=== PATIENT | female | born 1975 | race Caucasian/White ===

== ENCOUNTER 2020-08-17 11:28 | Emergency (ER) | payer OTHER, SELFPAY ==
[2020-08-17] VITALS (9 sets, daily range): BP systolic 95–114; BP diastolic 59–70; PULSE 61–76; RESP 15–25; TEMP 36.7; O2SAT 97–100
--- NOTE | ~2020-08-17 | XR_ITS ---
EXAMINATION: XR chest 1V portable DATE: 08/17/2020 13:06 INDICATION: Shortness of breath. TECHNIQUE: A single frontal view of the chest was obtained. COMPARISON: None. FINDINGS: The chest demonstrates clear lungs without pneumonia, pleural effusion, or pneumothorax. Th e heart size is normal. IMPRESSION: 1. No acute cardiopulmonary disease. Reviewed, dictated and finalized at location B.
--- NOTE | 2020-08-17 12:20 | ECG_ITS ---
Measurements Intervals [place] Rate: 50 P: 61 [place]: 146 QRS: 159 QRSD: 85 T: 15 QT: 375 QTc: 342 Interpretive Statements SINUS BRADYCARDIA POSSIBLE LEFT ATRIAL ENLARGEMENT INCOMPLETE RIGHT BUNDLE BRANCH BLOCK BORDERLINE R WAVE PROGRESSION, ANTERIOR LEADS BORDERLINE T WAVE ABNORMALITY- ANTERIOR LEADS BASELINE ARTIFACT- II, III, AVR, AVF, V2-V6 BORDERLINE ECG Electronically Signed On 08-17-2020 12:59:50 CDT by Angel Luis Cm D.O.
[2020-08-17 12:29] LABS: Basophils Percent Auto 0.8 % (0.2-1.2); Eosinophils Absolute Auto 0.1 K/mm3 (0-0.3); Eosinophils Percent Auto 1.5 % (0-4.4); Hematocrit 43.2 % (37.0-47.0); Hemoglobin 14.2 g/dL (12.0-15.0); Immature Granulocyte Absolute 0.02 K/mm3 (0.00-0.031); Immature Granulocyte Percent A 0.5 % (0-0.5); Lymphocytes Absolute Auto 1.19 K/mm3 (0.9-3.2); Lymphocytes Percent Auto 29.8 % (18.3-44.2); Mean Corpuscular HGB Conc 32.9 g/dl (32-36); Mean Corpuscular Hemoglobin 30.5 pg (26-34); Mean Corpuscular Volume 92.7 fl (80-100); Mean Platelet Volume 10.3 fl (7.4-10.4); Monocytes Absolute Auto 0.3 K/mm3 (0.1-0.6); Neutrophils Absolute Auto 2.4 K/mm3 (1.3-6.7); Neutrophils Percent Auto 60.4 % (45.5-73.1); Platelet Count Result 211 k/mm3 (150-375); Red Blood Count 4.66 M/mm3 (4.2-5.4); Red Cell Distribution Width 12.6 % (11.5-14.5)
[2020-08-17 12:40] LABS: Anion Gap 4 mmol/L (8-16); Blood Urea Nitrogen 10 mg/dL (7-17); Calcium 8.6 mg/dL (8.4-10.2); Carbon Dioxide 24 mmol/L (22-30); Chloride 108 mmol/L (98-107); Estimated CRCL calculation 89 ml/min; Estimated Glomerular Filt Rate > 60; Glucose 91 mg/dL (65-105); Potassium 4.2 mmol/L (3.4-5.0); Sodium 136 mmol/L (137-145)
--- NOTE | 2020-08-17 12:45 | ED.URI ---
HPI - URI/Sore Throat General Chief Complaint: Shortness of Breath/Dyspnea Stated Complaint: sob Time Seen by Provider: 08/17/20 12:20 Source: patient Mode of arrival: ambulatory Limitations: no limitations History of Present Illness HPI Narrative: This is a 44 year old female that presents to the ER for cold symptoms x 1 week. Reports cough, congestion. Also reports chest pressure that has been constant over the last week. Worse when she wakes up in the morning. Reports she had a negative covid swab 5 days ago. Denies fever, shortness of breath, or lower extremity edema. Related Data Allergies Allergy/AdvReac Type Severity Reaction Status Date / Time No Known Allergies Allergy Verified 08/17/20 12:21 Review of Systems Review of Systems: Narrative: CONSTITUTIONAL: Denies fever ENT: Reports congestion CARDIOVASCULAR: Reports chest pain. Denies edema. RESPIRATORY: Reports cough. Denies dyspnea. GASTROINTESTINAL: Reports abdominal pain, nausea, vomiting GENITOURINARY: Denies dysuria All systems reviewed & are unremarkable except as noted in HPI and below PMFSH Social History Social History (Updated 08/17/20 @ 12:47 by Silvia Tamayo PA-C) Smoking status: Current every day smoker Alcohol intake: current Exam Narrative: Exam Narrative: GENERAL: Well-appearing, well-nourished, and in no acute distress. HEAD: Normocephalic, atraumatic. EYES: EOMI. ENT: Nares clear, no rhinorrhea or epistaxis. Mucous membranes moist. Oropharynx without tonsillar hypertrophy exudate or other lesions. Bilateral TMs pearly melvin non-bulging NECK: Supple. No adenopathy or masses. No carotid bruits or JVD CHEST: Clear to auscultation. No respiratory distress. No wheezes rales or rhonchi HEART: Regular rate and rhythm. No murmur heard. Normal peripheral pulses. EXTREMITIES: Normal range of motion. No edema. SKIN: Warm, dry, no rash. NEURO: No focal deficits. Alert and oriented x3. PSYCH: Normal mood and affect Course Vital Signs Vital signs: Vital Signs Temperature 98.0 F 08/17/20 12:16 Pulse Rate 74 08/17/20 12:16 Respiratory Rate 18 08/17/20 12:16 Blood Pressure 114/70 08/17/20 12:16 Pulse Oximetry 100 08/17/20 12:16 Temperature 98.0 F 08/17/20 12:16 Pulse Rate 61 08/17/20 14:50 Respiratory Rate 18 08/17/20 14:50 Blood Pressure 101/59 L 08/17/20 14:50 Pulse Oximetry 97 08/17/20 14:50 MDM - URI/Sore Throat MDM Narrative Medical decision making narrative: Patient presents to the emergency department for cold symptoms over the last week. Reporting cough, congestion, and vomiting. She is afebrile and nontoxic-appearing. Oxygen saturation is normal on room air. She did have a negative Covid swab recently. CBC and metabolic panel without concerning findings. EKG without concerning changes and baseline troponin is negative. PERC criteria negative. Chest x-ray is without acute cardiopulmonary disease. UA without evidence of infection. Influenza screen is negative. Patient updated on case findings. Instructed on care of viral infection. She is to follow-up with her primary care doctor. She was given warnings to return to the ER Lab Data Attestation: I reviewed the patient's lab results. Result diagrams: 08/17/20 12:22 08/17/20 12:22 Labs: Lab Results 08/17/20 08/17/20 08/17/20 Range/Units 12:22 12:22 12:22 WBC 4.0 L (4.5-10.0) K/mm3 RBC 4.66 (4.2-5.4) M/mm3 Hgb 14.2 (12.0-15.0) g/dL Hct 43.2 (37.0-47.0) % MCV 92.7 (80-100) fl MCH 30.5 (26-34) pg MCHC 32.9 (32-36) g/dl RDW 12.6 (11.5-14.5) % Plt Count 211 (150-375) k/mm3 MPV 10.3 (7.4-10.4) fl Immature Gran % (Auto) 0.5 (0-0.5) % Neut % (Auto) 60.4 (45.5-73.1) % Lymph % (Auto) 29.8 (18.3-44.2) % [place] % (Auto) 7.0 (2.6-8.5) % Eos % (Auto) 1.5 (0-4.4) % Baso % (Auto) 0.8 (0.2-1.2) % Lymph # (Auto) 1.19 (0.9-3.2) K/mm3 [place] #
--- NOTE | 2020-08-17 13:05 | PC.NURSE ---
Called Jie in lab and added on pt/ptt trop 1 BNP CMP [facility] Ferritin
[2020-08-17 13:23] LABS: Prothrombin Time 13.9 Seconds (11.1-14.7)
[2020-08-17 13:24] LABS: Partial Thromboplastin Time 27.5 SECONDS (22.3-36.8)
[2020-08-17 13:44] LABS: Alanine Aminotransferase 13 U/L (4-35); Albumin Level 4.4 g/dL (3.5-5.1); Alkaline Phosphatase 55 U/L (38-126); Aspartate Amino Transferase 24 U/L (14-36); Bilirubin,Total 0.2 mg/dL (0.2-1.3); Lipase 87 U/L (23-300)
[2020-08-17 13:47] LABS: NT Pro B Type Natriuretic Pept 61 PG/ML (5-100); Troponin I < 0.012 ng/mL (0.000-0.034)
[2020-08-17 15:04] LABS: Add Urine Microscopic? YES; Appearance Urine Cloudy (Clear); Bilirubin Urine Negative (Negative); Blood Urine 1+ (Negative); Color Urine Yellow (Yellow); Glucose Urine UA Negative (Negative); Ketones Urine Negative (Negative); Leukocyte Esterase Ur Negative LEU/UL (Negative); Mucus Urine Rare /lpf; Nitrate Urine Negative (Negative); Protein Urine Negative (Negative); RBC Urine 0-2 /hpf (0-2); Specific Grav Ur 1.013 (1.001-1.035); Squamous Epithelial Cell Urine Many /hpf (Few); Urobilinogen Urine Negative mg/dL (<2.0); WBC Urine 0-3 /hpf
[2020-08-17 15:30] LABS: Lactate Dehydrogenase 416 U/L (313-618)
== END 2020-08-17 15:26 | disposition home or self-care (01) ==
PROVIDERS: Physician Assistant; Emergency Provider Emergency Medicine; PCP Internal Medicine
DX: B34.9 Viral infection, unspecified (principal); F17.200 Nicotine dependence, unspecified, uncomplicated; R00.1 Bradycardia, unspecified; I45.10 Unspecified right bundle-branch block; R94.31 Abnormal electrocardiogram [ECG] [EKG]
CPT/HCPCS: 36415; 71045; 80048; 80076; 81001; 82728; 83615; 83690; 83880; 84484; 85025; 85610; 85730; 87804; 93005; 99284

== ENCOUNTER 2020-12-25 21:13 | Emergency (ER) | payer OTHER, SELFPAY ==
[2020-12-25] VITALS (7 sets, daily range): BP systolic 98–119; BP diastolic 56–68; PULSE 58–82; RESP 17–18; TEMP 36.8; O2SAT 95–100
--- NOTE | ~2020-12-25 | XR_ITS ---
XR chest 2V DATE: 12/25/2020 21:44 INDICATION: Near syncope, dizziness starting at work today. Nausea, weakness. TECHNIQUE: PA and lateral views COMPARISON: 08/17/2020 portable AP chest FINDINGS: Pectus excavatum. Normal heart size. No hilar or mediastinal enlargement. No pulmonary infi ltrate or consolidation, pleural effusion or pulmonary vascular congestion or pneumothorax. IMPRESSION: No active cardiopulmonary disease Reviewed, dictated and finalized at location A.
--- NOTE | 2020-12-25 21:18 | ECG_ITS ---
Measurements Intervals [place] Rate: 71 P: 66 [place]: 153 QRS: 156 QRSD: 92 T: 39 QT: 371 QTc: 406 Interpretive Statements SINUS RHYTHM RIGHT AXIS DEVIATION POSSIBLE LEFT ATRIAL ENLARGEMENT INCOMPLETE RIGHT BUNDLE BRANCH BLOCK POOR R WAVE PROGRESSION, ANTERIOR LEADS BORDERLINE T WAVE ABNORMALITY- ANTERIOR LEADS BASELINE ARTIFACT- I, III, AVL BORDERLINE ECG Electronically Signed On 12-26-2020 6:59:08 CDT by Angel Luis Cm D.O.
--- NOTE | 2020-12-25 21:39 | PC.NURSE ---
Pt to imaging at this time
--- NOTE | 2020-12-25 21:47 | ED.GENADULT ---
HPI - General Adult General Chief complaint: Weakness Stated complaint: multiple symptoms Time Seen by Provider: 12/25/20 21:41 Source: RN notes reviewed History of Present Illness HPI narrative: Patient presents emergency department from work for near syncopal episode. 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 and felt like she was going to pass out she states at that time she felt perhaps that her blood sugar was getting low as she has a mother that is diabetic and went to eat and drink something states that following this she then became nauseous and had cramping in her legs states that this time she does feel better and notes only mild nausea she states she did feel like her heart was racing during the time she denies any chest pain shortness of breath abdominal pain or any other symptoms Related Data Home Medications Medication Instructions Recorded Confirmed No Home Medications 12/25/20 12/25/20 Allergies Allergy/AdvReac Type Severity Reaction Status Date / Time No Known Allergies Allergy Verified 12/25/20 21:26 Review of Systems Review of Systems: Gen.: Denies fevers or chills Eyes: Denies eye pain or visual change ENT: Denies congestion Respiratory: Denies shortness of breath or cough CV: Denies chest pain reports near syncopal episode GI: Denies abdominal pain emesis or diarrhea recent nausea Musculoskeletal: Denies back pain ported lower leg cramping Neuro: Denies numbness, tingling, weakness or focal weakness Skin: Denies rash Except as documented, all other systems reviewed and negative PMFSH Past Medical History Medical History (Updated 12/26/20 @ 02:01 by Loyd Aguilar DO) Patient denies significant medical history Social History Social History Smoking status: Current every day smoker Alcohol intake: current Gender identity (if verbalized by the patient): Female Exam Narrative: APPEARANCE: No acute distress, nontoxic, resting in bed EYES: EOMI, PERRL HEENT: Normocephalic, atraumatic, OMM RESPIRATORY: No respiratory distress Clear to auscultation bilaterally with no rhonchi wheezing or rales. CARDIOVASCULAR: Regular rate and rhythm without murmurs rubs or gallops. ABDOMINAL: Soft, nontender, nondistended, no rebound or guarding MUSCULOSKELETAl: Moves all extremities. No clubbing, cyanosis or edema. NEURO: Awake and alert x 4. Following commands, speech normal, no focal deficits SKIN:: Warm, dry. No rashes lesions or abrasions PSYCHIATRIC: Normal affect/mood, Course Course Emergency Course: Patient will give ambulate in ED with no difficulty Discussed with patient results of workup and diagnosis. Discussed need for follow-up with primary care, proper use of medication, and reasons to return to the emergency department. Patient understands and agrees to current treatment plan With patient possible use of Holter monitor as outpatient discussed need for follow-up with PCP Vital Signs Vital signs: Vital Signs Temperature 98.2 F 12/25/20 21:15 Pulse Rate 82 12/25/20 21:15 Respiratory Rate 17 12/25/20 21:15 Blood Pressure 119/63 12/25/20 21:15 Pulse Oximetry 100 12/25/20 21:15 Temperature 98.2 F 12/25/20 21:15 Pulse Rate 54 L 12/26/20 01:11 Respiratory Rate 18 12/26/20 01:11 Blood Pressure 103/56 L 12/26/20 01:11 Pulse Oximetry 98 12/26/20 01:11 Medical Decision Making MDM Narrative Medical decision making narrative: Patient's episode of near-syncope is not felt due to high risk cause. Near-syncopal episode was brief and patient is now back to normal mental status. EKG is reviewed without high-risk changes for syncope: There are no signs of prolonged QT or Brugada syndrome. Patient ambulates with a steady gait and is felt to be a reasonable candidate for further evaluation as an outpatient management Vital Signs Vital Signs: Vital Signs Temper
[2020-12-25 21:59] LABS: Add Urine Microscopic? YES; Appearance Urine Clear (Clear); Bacteria Urine Trace /hpf; Bilirubin Urine Negative (Negative); Blood Urine 2+ (Negative); Color Urine Straw (Yellow); Glucose Urine UA Negative (Negative); Ketones Urine Negative (Negative); Leukocyte Esterase Ur Negative LEU/UL (Negative); Nitrate Urine Negative (Negative); Protein Urine Negative (Negative); RBC Urine 0-2 /hpf (0-2); Squamous Epithelial Cell Urine Occasional /hpf (Few); Urobilinogen Urine Negative mg/dL (<2.0); WBC Urine 0-3 /hpf
[2020-12-25 22:02] LABS: Basophils Percent Auto 0.3 % (0.2-1.2); Eosinophils Absolute Auto 0.1 K/mm3 (0-0.3); Eosinophils Percent Auto 1.5 % (0-4.4); Hematocrit 38.1 % (37.0-47.0); Hemoglobin 12.1 g/dL (12.0-15.0); Immature Granulocyte Absolute 0.03 K/mm3 (0.00-0.031); Immature Granulocyte Percent A 0.3 % (0-0.5); Lymphocytes Absolute Auto 1.64 K/mm3 (0.9-3.2); Lymphocytes Percent Auto 18.7 % (18.3-44.2); Mean Corpuscular HGB Conc 31.8 g/dl (32-36); Mean Corpuscular Hemoglobin 29.3 pg (26-34); Mean Corpuscular Volume 92.3 fl (80-100); Mean Platelet Volume 9.9 fl (7.4-10.4); Monocytes Absolute Auto 0.4 K/mm3 (0.1-0.6); Neutrophils Absolute Auto 6.5 K/mm3 (1.3-6.7); Neutrophils Percent Auto 74.2 % (45.5-73.1); Platelet Count Result 299 k/mm3 (150-375); Red Blood Count 4.13 M/mm3 (4.2-5.4); Red Cell Distribution Width 13.7 % (11.5-14.5); White Blood Count 8.8 K/mm3 (4.5-10.0)
[2020-12-25 22:04] LABS: Specific Grav Ur 1.003 (1.001-1.035)
[2020-12-25 22:14] LABS: Creatine Kinase 68 U/L (30-135); Lipase 64 U/L (23-300)
[2020-12-25] MEDS: SODIUM CHLORIDE 0.9% IV 1,000 ML 999 ML IV CONT (22:15)
[2020-12-25 22:26] LABS: Troponin I < 0.012 ng/mL (0.000-0.034)
[2020-12-25 22:45] LABS: Alanine Aminotransferase 12 U/L (4-35); Alkaline Phosphatase 49 U/L (38-126); Anion Gap 6 mmol/L (8-16); Aspartate Amino Transferase 19 U/L (14-36); Bilirubin,Total < 0.1 mg/dL (0.2-1.3); Blood Urea Nitrogen 7 mg/dL (7-17); Calcium 9.3 mg/dL (8.4-10.2); Carbon Dioxide 24 mmol/L (22-30); Chloride 101 mmol/L (98-107); Estimated CRCL calculation 88 ml/min; Estimated Glomerular Filt Rate > 60; Glucose 107 mg/dL (65-110); Potassium 3.5 mmol/L (3.4-5.0); Sodium 131 mmol/L (137-145)
[2020-12-26 00:04] VITALS: BP 102/61; PULSE 58; RESP 20; O2SAT 98
[2020-12-26 00:43] LABS: Troponin I < 0.012 ng/mL (0.000-0.034)
[2020-12-26 01:11] VITALS: BP 103/56; PULSE 54; RESP 18; O2SAT 98
[2020-12-26 02:09] VITALS: BP 100/67; PULSE 60; RESP 20; O2SAT 96
== END 2020-12-26 02:10 | disposition home or self-care (01) ==
PROVIDERS: Emergency Provider Emergency Medicine; PCP Internal Medicine
DX: R55 Syncope and collapse (principal); F17.200 Nicotine dependence, unspecified, uncomplicated; I45.10 Unspecified right bundle-branch block; R94.31 Abnormal electrocardiogram [ECG] [EKG]
CPT/HCPCS: 36415; 71046; 80053; 81001; 81025; 82550; 83690; 84484; 85025; 93005; 96360; 99284; J7030

== ENCOUNTER 2021-03-24 08:54 | Emergency (ER) | payer OTHER, SELFPAY ==
--- NOTE | ~2021-03-24 | CT_ITS ---
EXAMINATION: CT abdomen pelvis wo con DATE: 03/24/2021 10:21 INDICATION: Right flank pain TECHNIQUE: Computed tomography (CT) of the abdomen and pelvis was performed without intravenous contr ast. Automated exposure control and iterative reconstruction technique were employed. The dose-length product was 281.35 mGy-cm. COMPARISON: None FINDINGS: Lung bases are clear. Mild pectus excavatum which exerts minimal mass effect on the anterior wall of the normal sized heart. No pericardial or pleural effusion. Liver, gallbladder, spleen, pancreas, muna ateral adrenal glands are normal. Kidneys and ureters are normal with no urolithiasis, hydroureterone phrosis or perinephric/ureteral stranding. There are few sigmoid diverticula without adjacent inflamm atory change to suggest diverticulitis. Small bowel and appendix are normal. Bladder, anteverted uter us and bilateral adnexa are unremarkable. There are few tiny phleboliths in the pelvis. Trace amount of likely physiologic free fluid in the cul-de-sac. No free intraperitoneal gas. No pathologically en larged abdominal or pelvic lymphadenopathy. IMPRESSION: 1. No urolithiasis or acute intra-abdominal/pelvic process. Reviewed, dictated and finalized at location A. [facility] DIPPER
[2021-03-24 09:11] VITALS: BP 115/66; PULSE 70; RESP 16; TEMP 36.7; O2SAT 97
[2021-03-24 09:42] LABS: Add Urine Microscopic? YES; Appearance Urine Cloudy (Clear); Bacteria Urine Trace /hpf; Bilirubin Urine Negative (Negative); Blood Urine 2+ (Negative); Color Urine Yellow (Yellow); Glucose Urine UA Negative (Negative); Ketones Urine Negative (Negative); Leukocyte Esterase Ur Negative LEU/UL (Negative); Mucus Urine Rare /lpf; Nitrate Urine Negative (Negative); Protein Urine Negative (Negative); Squamous Epithelial Cell Urine Moderate /hpf (Few); Urobilinogen Urine Negative mg/dL (<2.0); WBC Urine 0-3 /hpf
[2021-03-24] MEDS: SODIUM CHLORIDE 0.9% IV 1,000 ML 999 ML IV CONT (10:05)
[2021-03-24] MEDS: KETOROLAC 30 MG/ML VIAL (*BKC) IV PUSH (10:05)
[2021-03-24 10:17] LABS: Basophils Percent Auto 0.6 % (0.2-1.2); Eosinophils Absolute Auto 0.1 K/mm3 (0-0.3); Eosinophils Percent Auto 2.6 % (0-4.4); Hematocrit 37.7 % (37.0-47.0); Hemoglobin 12.1 g/dL (12.0-15.0); Immature Granulocyte Absolute 0.02 K/mm3 (0.00-0.031); Immature Granulocyte Percent A 0.4 % (0-0.5); Lymphocytes Absolute Auto 1.43 K/mm3 (0.9-3.2); Lymphocytes Percent Auto 26.2 % (18.3-44.2); Mean Corpuscular HGB Conc 32.1 g/dl (32-36); Mean Corpuscular Hemoglobin 30.1 pg (26-34); Mean Corpuscular Volume 93.8 fl (80-100); Mean Platelet Volume 10.1 fl (7.4-10.4); Monocytes Absolute Auto 0.4 K/mm3 (0.1-0.6); Monocytes Percent Auto 6.8 % (2.6-8.5); Neutrophils Absolute Auto 3.5 K/mm3 (1.3-6.7); Neutrophils Percent Auto 63.4 % (45.5-73.1); Platelet Count Result 231 k/mm3 (150-375); Red Blood Count 4.02 M/mm3 (4.2-5.4); White Blood Count 5.5 K/mm3 (4.5-10.0)
[2021-03-24 10:28] LABS: Alanine Aminotransferase 15 U/L (4-35); Albumin Level 3.9 g/dL (3.5-5.1); Alkaline Phosphatase 47 U/L (38-126); Anion Gap 7 mmol/L (8-16); Aspartate Amino Transferase 20 U/L (14-36); Bilirubin,Total 0.2 mg/dL (0.2-1.3); Blood Urea Nitrogen 20 mg/dL (7-17); Calcium 8.7 mg/dL (8.4-10.2); Carbon Dioxide 24 mmol/L (22-30); Chloride 105 mmol/L (98-107); Estimated CRCL calculation 88 ml/min; Estimated Glomerular Filt Rate > 60; Glucose 99 mg/dL (65-110); Potassium 4.2 mmol/L (3.4-5.0); Sodium 136 mmol/L (137-145)
--- NOTE | 2021-03-24 12:46 | ED.GENADULT ---
HPI - General Adult General Chief complaint: Urogenital-Female Stated complaint: urinary symptoms Time Seen by Provider: 03/24/21 09:09 Source: RN notes reviewed History of Present Illness HPI narrative: Patient presents emergency department from home for hematuria. Patient states for the past 2 weeks she has been noticing some blood in her urine as well as blood with wiping she states is been associated with some lower abdominal pain in the suprapubic region that radiates around to the back patient states she got in urgent care 2 weeks ago and was told to come the ER for further evaluation states she has not been on antibiotics she denies any fevers or chills nausea vomiting diarrhea. States she has been having some vaginal discharge with the symptoms Related Data Allergies Allergy/AdvReac Type Severity Reaction Status Date / Time No Known Allergies Allergy Verified 12/25/20 21:26 Review of Systems Review of Systems: Gen.: Denies fevers or chills ENT: Denies congestion Respiratory: Denies shortness of breath or cough CV: Denies chest pain or palpitations GI reports lower abdominal pain denies nausea, emesis or diarrhea see HPI Musculoskeletal: Denies back pain or muscle pain Neuro: Denies numbness, tingling, weakness or focal weakness Skin: Denies rash Except as documented, all other systems reviewed and negative PMFSH Past Medical History Medical History Patient denies significant medical history Social History Social History Smoking status: Current every day smoker Alcohol intake: current Gender identity (if verbalized by the patient): Female Exam Narrative: APPEARANCE: No acute distress, nontoxic, resting in bed HEENT: Normocephalic, atraumatic, OMM RESPIRATORY: No respiratory distress, clear to auscultation bilaterally with no rhonchi wheezing or rales CARDIOVASCULAR: RRR s murmur ABDOMINAL: Soft nondistended tender palpation suprapubic region no tenderness right upper quadrant right lower quadrant, left upper quadrant left lower quadrant no rebound or guarding : Normal external exam monitor amount of thick white discharge in vaginal canal cervix is closed right adnexal tenderness no left adnexal tenderness no cervical motion tenderness MUSCULOSKELETAl: Moves all extremities. No clubbing, cyanosis or edema. NEURO: Awake and alert. Following commands, speech normal, no focal deficits SKIN:: Warm, dry. Normal Color PSYCHIATRIC: Normal affect/mood Course Course Emergency Course: Patient states that they are feeling much better at this time. States abdominal pain has resolved. Repeat abdominal exam shows the patient's abdomen to be soft and nontender. Discussed with patient results of workup and diagnosis. Discussed need for follow-up with primary care physician, reasons to return to the emergency department in proper use of medication. Patient understands and agrees to current treatment plan Vital Signs Vital signs: Vital Signs Temperature 98.1 F 03/24/21 09:11 Pulse Rate 70 03/24/21 09:11 Respiratory Rate 16 03/24/21 09:11 Blood Pressure 115/66 03/24/21 09:11 Pulse Oximetry 97 03/24/21 09:11 Temperature 98.1 F 03/24/21 09:11 Pulse Rate 70 03/24/21 09:11 Respiratory Rate 16 03/24/21 09:11 Blood Pressure 115/66 03/24/21 09:11 Pulse Oximetry 97 03/24/21 09:11 Medical Decision Making MDM Narrative Medical decision making narrative: Patient's abdomen is soft without significant pain or signs of surgical abdomen on serial exams. Lab and x-ray evaluations are reviewed and patient is felt to be a reasonable candidate for outpatient management. Patient was instructed as to limitations of x-ray and laboratory evaluation and encouraged to return to ED or primary physician for repeat exam in 12 hours if continued or worsening pain Vital Signs Vital Signs: Vital Signs
[2021-03-24] MEDS: metroNIDAZOLE 250 MG TABLET 500 MG PO (13:23)
[2021-03-24 13:25] VITALS: BP 105/46; PULSE 65; RESP 18; O2SAT 99
== END 2021-03-24 13:25 | disposition home or self-care (01) ==
PROVIDERS: Emergency Provider Emergency Medicine; PCP Internal Medicine
DX: N76.0 Acute vaginitis (principal); R31.9 Hematuria, unspecified; F17.200 Nicotine dependence, unspecified, uncomplicated
CPT/HCPCS: 36415; 74176; 80053; 81001; 81025; 85025; 87070; 87491; 87591; 87808; 96361; 96374; 99284; A9270; J1885; J7030

== ENCOUNTER 2022-03-13 12:50 | Emergency (ER) | payer OTHER, SELFPAY ==
--- NOTE | ~2022-03-13 | CT_ITS ---
EXAMINATION: CT abdomen pelvis w con DATE: 03/13/2022 17:08 INDICATION: Abdominal pain, flank pain TECHNIQUE: Computed tomography (CT) of the abdomen and pelvis was performed with 100 CC Omnipaque 350 intravenous contrast. Automated exposure control and iterative reconstruction technique were employe d. Exam dose: 297.52 mGy-cm total exam DLP. COMPARISON: 03/20/2021 CT abdomen pelvis FINDINGS: Left lower lobe calcified pulmonary granuloma. The lung bases are clear of infiltrate or co nsolidation. Heart size is within normal range. No pericardial or pleural effusion. There is soft tissue thickening at the gallbladder fundus which might be due to adenomyomatosis. No g allstones are evident. No pericholecystic fluid or fat stranding. 7 mm hepatic cyst. The liver, spleen, pancreas and bile ducts and pancreatic duct are otherwise unrem arkable. Normal morphology of the adrenal glands. 6.8 mm upper pole right renal probable cyst; the kidneys are otherwise unremarkable. No urinary tract calculus or hydroureteronephrosis. Normal caliber of the abdominal aorta. No intraperitoneal or retroperitoneal or pelvic mass lesion or adenopathy or ascites. The urinary bladder is unremarkable. The uterus measures 9.9 cm height and up to 5.9 cm AP dimension. The adnexal areas are unremarkable. Normal caliber of the abdominal aorta. No intraperitoneal or retroperitoneal or pelvic mass lesion or adenopathy or ascites. No bowel obstruction, bowel wall thickening, pneumatosis or intraperitoneal free air. No evidence of appendicitis. No bowel obstruction, bowel wall thickening, pneumatosis or intraperiton eal free air. No suspicious osteolytic or osteoblastic lesions IMPRESSION: 7 mm hepatic cyst Probable 6.8 mm upper pole right renal cyst No urinary tract calculus or hydroureteronephrosis Soft tissue thickening of the tip of the gallbladder fundus; consider possible adenomyomatosis Reviewed, dictated and finalized at Location [facility]. Reviewed, dictated and finalized at location A. INSPECTOR
[2022-03-13 13:13] VITALS: BP 92/53; PULSE 84; RESP 14; TEMP 37.2; O2SAT 98
--- NOTE | 2022-03-13 13:21 | ECG_ITS ---
Measurements Intervals [place] Rate: 79 P: [place]: 0 QRS: 206 QRSD: 87 T: 62 QT: 383 QTc: 439 Interpretive Statements SINUS RHYTHM RIGHT AXIS DEVIATION INCOMPLETE RIGHT BUNDLE BRANCH BLOCK POOR R WAVE PROGRESSION, ANTERIOR LEADS BORDERLINE T WAVE ABNORMALITY- ANTERIOR LEADS BORDERLINE ECG COMPARED TO ECG 12/25/2020 21:38:24 NO SIGNIFICANT CHANGES Electronically Signed On 03-13-2022 13:29:43 [employer]AM[employer] GRINDER by Angel Luis Cm D.O.
--- NOTE | 2022-03-13 15:10 | ED.FEMALEGU ---
HPI - Female Genitourinary General Chief complaint: Urogenital-Female Stated complaint: flank pain, hematuria, right jaw pain Time Seen by Provider: 03/13/22 15:09 Source: patient Mode of arrival: ambulatory Limitations: no limitations History of Present Illness HPI Narrative: 46 years old white female presents with inability to sleep last night, insomnia, palpitation, history of palpitation on the Holter monitor without a specific diagnosis, woke up this morning with abdominal pain, around the umbilicus, left flank pain, noticed blood in the urine this morning, he denies any fever, chills, nausea, vomiting. Last menstrual period 2 weeks ago, patient does not take medicine, she smokes cigarettes, smokes marijuana, denies alcohol. She reports a lot of stress lately. Related Data Allergies Allergy/AdvReac Type Severity Reaction Status Date / Time No Known Allergies Allergy Verified 03/13/22 15:58 Review of Systems Review of Systems: All systems reviewed & are unremarkable except as noted in HPI and below PMFSH Past Medical History Medical History Patient denies significant medical history Social History Social History Smoking status: Current every day smoker Alcohol intake: current Gender identity (if verbalized by the patient): Female Exam Narrative: General appearance: Well-developed, well-nourished Skin: Normal color Head: Normocephalic, nontraumatic Eyes: Clear conjunctiva ENT: Oropharynx normal, ears normal, nose normal Neck: Supple, nontender Chest and respiratory: Airway patent, no respiratory distress, no accessory muscle use Heart: Regular rate/rhythm Abdomen: Soft, lower abdominal tenderness, no guarding or rebound, left flank pain, no bruises or rash, no organomegaly, quiet bowel sounds Vascular: Normal peripheral pulses, normal capillary refill. Musculoskeletal: Normal range of motion, nontender back Neurologic: Alert and oriented ?3, [employer] is normal as tested, no gross motor deficit Course Vital Signs Vital signs: Vital Signs Temperature 37.2 C 03/13/22 13:13 Pulse Rate 84 03/13/22 13:13 Respiratory Rate 14 03/13/22 13:13 Blood Pressure 92/53 L 03/13/22 13:13 Pulse Oximetry 98 03/13/22 13:13 Oxygen Delivery Room Air 03/13/22 13:13 Temperature 37.2 C 03/13/22 13:13 Pulse Rate 84 03/13/22 13:13 Respiratory Rate 14 03/13/22 13:13 Blood Pressure 92/53 L 03/13/22 13:13 Pulse Oximetry 98 03/13/22 13:13 Oxygen Delivery Room Air 03/13/22 13:13 MDM - Female Genitourinary Differential Diagnosis Differential diagnosis: Likely urinary tract infection, cystitis and other (Kidney stone, appendicitis, pancreatitis) Imaging Data My impression: Impressions Abdomen/Pelvis CT 03/13/22 17:10 IMPRESSION: 7 mm hepatic cyst Probable 6.8 mm upper pole right renal cyst No urinary tract calculus or hydroureteronephrosis Soft tissue thickening of the tip of the gallbladder fundus; consider possible adenomyomatosis Critical Care Time Critical Care Time Critical Care Time: Yes Total Critical Care Time: 35 Discharge Plan Discharge Clinical Impression: Hematuria Patient Disposition: Home, Self-Care Condition: Stable Instructions: Antibiotic Form, Hematuria (ED) Additional Instructions: Return if symptoms are worsening , call your family physician/Dr. Dr. Alexandre for appointment, take Tylenol as as needed for aches and pain, continue home medications. Encourage fluid intake Prescriptions: New ciprofloxacin HCl [Cipro] 500 mg tablet 500 mg PO Q12
[2022-03-13] MEDS: SODIUM CHLORIDE 0.9% IV 1,000 ML 999 ML IV CONT (15:46)
[2022-03-13] MEDS: ONDANSETRON INJ 4 MG/2 ML VIAL IV PUSH (15:46)
[2022-03-13] MEDS: MORPHINE SULFATE (*CRX) 4 MG/ML INJ IV PUSH (15:47)
[2022-03-13 15:57] VITALS: BP 103/53; PULSE 74; RESP 18; O2SAT 98
[2022-03-13 16:04] LABS: Basophils Percent Auto 0.4 % (0.2-1.2); Eosinophils Absolute Auto 0.1 K/mm3 (0-0.3); Eosinophils Percent Auto 1.4 % (0-4.4); Hematocrit 38.7 % (37.0-47.0); Hemoglobin 11.9 g/dL (12.0-15.0); Immature Granulocyte Absolute 0.05 K/mm3 (0.00-0.031); Immature Granulocyte Percent A 0.5 % (0-0.5); Lymphocytes Absolute Auto 1.84 K/mm3 (0.9-3.2); Lymphocytes Percent Auto 18.6 % (18.3-44.2); Mean Corpuscular HGB Conc 30.7 g/dl (32-36); Mean Corpuscular Hemoglobin 27.5 pg (26-34); Mean Corpuscular Volume 89.6 fl (80-100); Monocytes Absolute Auto 0.5 K/mm3 (0.1-0.6); Monocytes Percent Auto 4.9 % (2.6-8.5); Neutrophils Absolute Auto 7.3 K/mm3 (1.3-6.7); Neutrophils Percent Auto 74.2 % (45.5-73.1); Platelet Count Result 268 k/mm3 (150-375); Red Blood Count 4.32 M/mm3 (4.2-5.4); Red Cell Distribution Width 16.3 % (11.5-14.5); White Blood Count 9.9 K/mm3 (4.5-10.0)
[2022-03-13 16:05] LABS: Appearance Urine Slightly Cloudy (Clear); Bilirubin Urine Negative (Negative); Blood Urine 3+ (Negative); Color Urine Yellow (Yellow); Glucose Urine UA Negative (Negative); Ketones Urine Negative (Negative); Leukocyte Esterase Ur Negative LEU/UL (Negative); Nitrate Urine Negative (Negative); Protein Urine Negative (Negative); Urobilinogen Urine 0.2 mg/dL (<2.0)
[2022-03-13 16:08] LABS: Mucus Urine Rare /lpf; RBC Urine >75 /hpf (0-2); Squamous Epithelial Cell Urine Moderate /hpf (Few); WBC Urine 0-3 /hpf
[2022-03-13 16:15] LABS: Add Urine Microscopic? YES
[2022-03-13 16:19] LABS: Alanine Aminotransferase 14 U/L (6-35); Albumin Level 4.2 g/dL (3.5-5.1); Alkaline Phosphatase 53 U/L (38-126); Anion Gap 8 mmol/L (8-16); Aspartate Amino Transferase 19 U/L (14-36); Bilirubin,Total 0.4 mg/dL (0.2-1.3); Blood Urea Nitrogen 14 mg/dL (7-17); Calcium 8.4 mg/dL (8.4-10.2); Carbon Dioxide 26 mmol/L (22-30); Chloride 104 mmol/L (98-107); Estimated CRCL calculation 87 ml/min; Estimated Glomerular Filt Rate > 60; Glucose 87 mg/dL (65-110); Lipase 78 U/L (23-300); Potassium 4.1 mmol/L (3.4-5.0); Sodium 138 mmol/L (137-145)
[2022-03-13 17:49] VITALS: BP 99/55; PULSE 62; RESP 18; O2SAT 99
[2022-03-13 18:07] VITALS: BP 95/49; PULSE 67; RESP 18; O2SAT 98
== END 2022-03-13 18:08 | disposition home or self-care (01) ==
PROVIDERS: Emergency Provider Emergency Medicine; PCP Internal Medicine
DX: R31.9 Hematuria, unspecified (principal); F17.200 Nicotine dependence, unspecified, uncomplicated; I45.10 Unspecified right bundle-branch block; R94.31 Abnormal electrocardiogram [ECG] [EKG]; K76.89 Other specified diseases of liver; R93.421 Abnormal radiologic findings on diagnostic imaging of right kidney
CPT/HCPCS: 36415; 74177; 80053; 81001; 83690; 85025; 93005; 96361; 96374; 96375; 99284; J2270; J2405; J7030; Q9967

== ENCOUNTER 2022-03-15 14:30 | Emergency (ER) | payer OTHER, SELFPAY ==
[2022-03-15 14:44] VITALS: BP 106/61; PULSE 83; RESP 16; TEMP 37.2; O2SAT 100
[2022-03-15 16:17] VITALS: BP 102/51; PULSE 62; RESP 18; O2SAT 98
--- NOTE | 2022-03-15 16:21 | PC.NURSE ---
Patient denies any pain or symptoms at this time. Patient states she has history of anxiety, but has never had an attack like this before
--- NOTE | 2022-03-15 16:54 | ED.ANXIETY ---
HPI - Anxiety General Chief Complaint: Anxiety Stated Complaint: anxiety - dizziness while driving Time Seen by Provider: 03/15/22 16:24 History of Present Illness HPI narrative: Patient is a 46-year-old female who presents ER after having a panic attack. She reports she was driving when she began to have sensation of feeling warm, her chest became tight and her heart was racing. She then began to feel very anxious and was breathing very fast. She reports she pulled over at her place of work and her boss sat with her until and EMS vehicle could arrive. When EMS arrived she was having carpopedal spasms in her fingers and feet were tingling. Patient reports has been having some panic attacks recently. She just found out this morning that her 's mom was going to be put on hospice. She also has a daughter who is currently being evicted and moving back in with her while she cares for her own ailing family members. Related Data Allergies Allergy/AdvReac Type Severity Reaction Status Date / Time No Known Allergies Allergy Verified 03/15/22 14:31 Review of Systems Review of Systems: All systems reviewed & are unremarkable except as noted in HPI and below Constitutional: Constitutional: Denies fatigue and Denies fever(s) Cardiovascular: Cardiovascular: Denies chest pain, Reports rapid heart rate and Denies radiating jaw, neck or arm pain Respiratory: Respiratory: Denies cough, Reports dyspnea and Denies wheezing Musculoskeletal: Musculoskeletal: Reports muscle cramps (Hand and feet) Neurologic: Reports tingling Psychiatric: Psychiatric: Reports anxiety, Reports depression, Reports panic attacks, Denies visual hallucinations, Denies hallucinations, Denies homicidal ideation and Denies suicidal ideation PMFSH Past Medical History Medical History Patient denies significant medical history Social History Social History Smoking status: Current every day smoker Alcohol intake: current Gender identity (if verbalized by the patient): Female Exam Narrative: GENERAL: Well-appearing, well-nourished, and in no acute distress. HEAD: Normocephalic, atraumatic. EYES: PERRL and EOMI. ENT: Mucous membranes moist. CHEST: Clear to auscultation. No respiratory distress. HEART: Regular rate and rhythm. Normal peripheral pulses. ABDOMEN: Soft, nontender, nondistended. EXTREMITIES: Normal range of motion. No edema. NEURO: Alert and oriented x3. PSYCH: Normal mood and affect. Course Course Emergency Course: Very complex at this time. We had a very good discussion about the stressors in her life and we discussed stress management and healthy lifestyle. Patient will be given a supply of Xanax to take for extreme anxiety at home. I recommend that she follow-up with her PCP as she may want to be started on a mood stabilizer. Vital Signs Vital signs: Vital Signs Temperature 99 F 03/15/22 14:44 Pulse Rate 83 03/15/22 14:44 Respiratory Rate 16 03/15/22 14:44 Blood Pressure 106/61 03/15/22 14:44 Pulse Oximetry 100 03/15/22 14:44 Oxygen Delivery Room Air 03/15/22 14:44 Temperature 99 F 03/15/22 14:44 Pulse Rate 62 03/15/22 16:17 Respiratory Rate 18 03/15/22 16:17 Blood Pressure 102/51 L 03/15/22 16:17 Pulse Oximetry 98 03/15/22 16:17 Oxygen Delivery Room Air 03/15/22 14:44 Discharge Plan Discharge Clinical Impression: Panic attack Patient Disposition: Home, Self-Care Condition: Stable Instructions: Anxiety (ED) Additional Instructions: Return the ER if you have thoughts of harming yourself or others, you have exertional chest pain with shortness of breath, or you have additional concerns. Prescriptions: New alprazolam 0.25 mg tablet 0.25 mg PO BID PRN (Reason: anxiety) Qty: 12 0RF No Action ibuprofen [IBU] 600 mg tablet 600 mg PO Q6H PRN ([place]
== END 2022-03-15 17:20 | disposition home or self-care (01) ==
PROVIDERS: Emergency Provider Emergency Medicine; PCP Internal Medicine
DX: F41.0 Panic disorder [episodic paroxysmal anxiety] (principal); F17.200 Nicotine dependence, unspecified, uncomplicated
CPT/HCPCS: 99283